=== PATIENT | male | born 1970 | race Two or more races ===

== ENCOUNTER 2023-06-08 17:47 | Inpatient (IN) | payer BC ==
[~2023-06-08] VITALS: Ht 185.4 cm; Wt 220.0 kg
[2023-06-08 18:39] LABS: Basophils # (auto) 0.1 10 ^3/uL (0-0.2); Basophils % (auto) 0.5 % (0.0-2.0); Eosinophils # (auto) 0.2 10 ^3/uL (0-0.8); Eosinophils % (auto) 1.4 % (0.0-7.0); Hematocrit 47.1 % (41.0-53.0); Hemoglobin 15.7 g/dL (13.5-17.5); Lymphocytes # (auto) 2.9 10 ^3/uL (0.4-5.4); Lymphocytes % (auto) 26.3 % (10.0-50.0); Mean Corpuscular Hemoglobin 28.9 pg (28.0-32.0); Mean Corpuscular Hgb Conc. 33.5 g/dL (32.0-36.0); Mean Corpuscular Volume 86.2 fL (80.0-100.0); Monocytes # (auto) 0.6 10 ^3/uL (0-1.3); Monocytes % (auto) 5.1 % (0.0-12.0); Neutrophils # (auto) 7.2 10 ^3/uL (1.6-8.6); Neutrophils % (auto) 66.7 % (37.0-80.0); Nucleated Red Blood Cells % 0.2 %; Red Blood Cells 5.46 10^6/uL (4.5-5.90); Red Cell Distribution Width 13.5 % (11.8-14.3); White Blood Cell 10.9 10^3/uL (4.4-10.8)
[2023-06-08 18:43] LABS: Urine Bacteria NONE SEEN /hpf (None Seen); Urine Blood Negative /uL (Negative); Urine Clarity Clear (Clear); Urine Color Yellow (Yellow); Urine Hyaline Cast MANY /lpf (0 - 2); Urine Mucus FEW (None Seen); Urine Protein, UAD 1+ (Negative); Urine Specific Gravity 1.026 (1.001-1.035); Urine WBC 5 /hpf (0 - 3)
[2023-06-08 18:56] LABS: Alanine Aminotransferase 56 U/L (7-40); Albumin 4.3 g/dL (3.2-4.8); Alkaline Phosphatase 104 U/L (46-116); Anion Gap 8 (5-15); Aspartate Aminotransferase 44 U/L (13-40); BUN/Creatinine Ratio 15.4 (10.0-20.0); Blood Urea Nitrogen 18 mg/dL (9-23); Calcium 9.3 mg/dL (8.7-10.4); Carbon Dioxide 27 mmol/L (20-30); Chloride 102 mmol/L (98-107); Glucose 116 mg/dL (74-106); Potassium 4.4 mmol/L (3.5-5.1); Sodium 137 mmol/L (136-145)
[2023-06-08 18:57] LABS: Bilirubin, Total 0.5 mg/dL (0.2-1.0); Total Protein 7.4 g/dL (5.7-8.2)
[2023-06-08] MEDS ORDERED: ACETAMINOPHEN 325 MG TAB PO ONE (20:30)
[2023-06-08] MEDS ORDERED: NITROGLYCERIN 0.4 MG SL TAB SL ONE (20:30)
[2023-06-08] MEDS ORDERED: ASPirin 81 mg TAB PO ONE (20:30)
[2023-06-08] MEDS ORDERED: ATENOLOL 25 MG TAB PO ONE (20:30)
[2023-06-08] MEDS ORDERED: KETOROLAC TROMETH 60MG/2ML VIAL IM ONE ×2 (21:00)
[2023-06-08] MEDS ORDERED: hydrALAZINE HCL 20 MG/ML VL IV PRN (21:30)
[2023-06-08] MEDS ORDERED: ACETAMINOPHEN 325 MG TAB PO PRN (21:30)
[2023-06-08] MEDS ORDERED: DOCUSATE SOD 100 MG CAP PO PRN (21:30)
[2023-06-08] MEDS ORDERED: SODIUM CHLORIDE 0.9% 1,000 ML IV SCH (21:30)
[2023-06-08] MEDS ORDERED: ONDANSETRON HCL 4 MG/2 ML VIAL IV PRN (21:30)
[2023-06-08] MEDS ORDERED: DEXTROSE (50%) 50ML SYRG IV PRN (21:30)
[2023-06-08] MEDS ORDERED: MORPHINE SULFATE INJ 2 MG/ml SYRG IV PRN ×2 (21:30→22:30)
[2023-06-08] MEDS: METOPROLOL TARTRATE 25 MG TAB PO SCH (22:00)
[2023-06-08] MEDS: ACCU-CHEK COMFORT CURVE STRIP VI SCH (22:19)
[2023-06-08] MEDS: InsuLIN REG 1unit/0.01ml Soln (100units/ml) SC SCH (22:26)
[2023-06-08] MEDS ORDERED: NITROGLYCERIN 0.4 MG SL TAB SL PRN (22:30)
[2023-06-09 00:16] VITALS: O2SAT 98
[2023-06-09 05:12] LABS: Basophils # (auto) 0 10 ^3/uL (0-0.2); Basophils % (auto) 0.3 % (0.0-2.0); Eosinophils # (auto) 0.2 10 ^3/uL (0-0.8); Eosinophils % (auto) 2.1 % (0.0-7.0); Hematocrit 46.9 % (41.0-53.0); Hemoglobin 15.7 g/dL (13.5-17.5); Lymphocytes # (auto) 3.5 10 ^3/uL (0.4-5.4); Lymphocytes % (auto) 36.5 % (10.0-50.0); Mean Corpuscular Hemoglobin 29.1 pg (28.0-32.0); Mean Corpuscular Hgb Conc. 33.5 g/dL (32.0-36.0); Mean Corpuscular Volume 86.7 fL (80.0-100.0); Monocytes # (auto) 0.6 10 ^3/uL (0-1.3); Monocytes % (auto) 6.1 % (0.0-12.0); Neutrophils # (auto) 5.3 10 ^3/uL (1.6-8.6); Nucleated Red Blood Cells % 0.2 %; Red Cell Distribution Width 13.5 % (11.8-14.3); White Blood Cell 9.6 10^3/uL (4.4-10.8)
[2023-06-09 05:18] LABS: Alanine Aminotransferase 49 U/L (7-40); Albumin 4.2 g/dL (3.2-4.8); Alkaline Phosphatase 87 U/L (46-116); Anion Gap 6 (5-15); Aspartate Aminotransferase 36 U/L (13-40); Bilirubin, Total 0.5 mg/dL (0.2-1.0); Blood Urea Nitrogen 15 mg/dL (9-23); Calcium 9.3 mg/dL (8.7-10.4); Carbon Dioxide 28 mmol/L (20-30); Chloride 103 mmol/L (98-107); Glucose 139 mg/dL (74-106); Potassium 4.5 mmol/L (3.5-5.1); Sodium 137 mmol/L (136-145); Total Protein 7.4 g/dL (5.7-8.2)
[2023-06-09 05:24] LABS: BUN/Creatinine Ratio 14.7 (10.0-20.0)
[2023-06-09] MEDS: ACCU-CHEK COMFORT CURVE STRIP VI SCH ×4 (07:22→22:00)
[2023-06-09] MEDS: InsuLIN REG 1unit/0.01ml Soln (100units/ml) SC SCH ×4 (07:26→23:30)
[2023-06-09] MEDS: METOPROLOL TARTRATE 25 MG TAB PO SCH ×2 (12:33→21:33)
[2023-06-09] MEDS: ASPirin 81 mg TAB PO SCH (12:42)
[2023-06-09 13:59] VITALS: PULSE 60; RESP 18; O2SAT 95
[2023-06-09 18:30] VITALS: BP 168/48; PULSE 76; RESP 16; TEMP 96.1; O2SAT 97
[2023-06-09 18:39] VITALS: BP 168/48; PULSE 76; RESP 16; TEMP 96.1; O2SAT 97
[2023-06-09] MEDS ORDERED: ACET30TA15 PO (19:08)
[2023-06-09 20:00] VITALS: PULSE 73
[2023-06-09] MEDS: HYDROcodone-ACET 5/325MG TAB PO PRN (21:31)
[2023-06-09] MEDS: ENOXAPARIN SOD 40 MG/0.4 ML SYRINGE SC SCH (21:37)
[2023-06-09 22:00] VITALS: BP 140/84; PULSE 67; RESP 17; TEMP 97.6; O2SAT 95
[2023-06-10] MEDS: HYDROcodone-ACET 5/325MG TAB PO PRN (01:47)
[2023-06-10 05:00] VITALS: BP 148/75; PULSE 71; RESP 19; TEMP 98.5; O2SAT 94
[2023-06-10] MEDS: InsuLIN REG 1unit/0.01ml Soln (100units/ml) SC SCH (06:35)
[2023-06-10] MEDS: ACCU-CHEK COMFORT CURVE STRIP VI SCH (06:35)
[2023-06-10 06:42] LABS: Triglycerides 138 mg/dL (< 150)
[2023-06-10 06:43] LABS: LDL Cholesterol 133 mg/dL (< 100)
[2023-06-10 06:44] LABS: Cholesterol 173 mg/dL (< 200); HDL Cholesterol 33 mg/dL (40-59)
[2023-06-10 08:15] VITALS: PULSE 66
[2023-06-10 09:11] VITALS: BP 134/81; PULSE 73; RESP 17; TEMP 98.1; O2SAT 96
[2023-06-10] MEDS: ENOXAPARIN SOD 40 MG/0.4 ML SYRINGE SC SCH (10:34)
[2023-06-10] MEDS: METOPROLOL TARTRATE 25 MG TAB PO SCH (10:34)
[2023-06-10] MEDS: ASPirin 81 mg TAB PO SCH (10:34)
[2023-06-10] MEDS ORDERED: METO25TA36 PO (10:36)
[2023-06-10] MEDS ORDERED: ASPI-325 PO (10:36)
[2023-06-10] MEDS ORDERED: LISI10TA34 PO (10:36)
[2023-06-10] MEDS ORDERED: ATO40T PO (10:36)
[2023-06-10 12:50] VITALS: BP 112/62; PULSE 64; RESP 17; TEMP 98.7; O2SAT 94
[2023-06-10] MEDS ORDERED: ATORVASTATIN 20 MG TAB PO SCH (22:00)
[2023-06-11] MEDS ORDERED: LISINOPRIL 10 MG TAB PO SCH (10:00)
== END 2023-06-10 13:50 | disposition home or self-care (01) | DRG 305 ==
LOC: ER 17:47 → EDBD 17:47 → TELE 22:24 → TELE-CENTR 06-09 17:35
PROVIDERS: ADMIT Nurse Practitioner Family; ATTEND Internal Medicine Geriatric Medicine
DX: I16.0 Hypertensive urgency (principal); Z68.44 Body mass index [BMI] 60.0-69.9, adult; R79.89 Other specified abnormal findings of blood chemistry; E66.01 Morbid (severe) obesity due to excess calories; E11.9 Type 2 diabetes mellitus without complications; E78.5 Hyperlipidemia, unspecified; I10 Essential (primary) hypertension; Z79.899 Other long term (current) drug therapy
CPT/HCPCS: 36415; 71045; 80053; 80061; 81001; 82962; 84484; 85025; 93005; 93306; 96365; 96372; 96375; G0378; J1815; J1885; J2405